=== PATIENT | male | born 2000 | race Caucasian/White ===

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

== ENCOUNTER 2019-04-17 09:45 | Emergency (ER) | payer OTHER ==
[~2019-04-17] VITALS: Ht 175.3 cm; Wt 90.9 kg
[2019-04-17 09:48] VITALS: Ht 175.3 cm; Wt 90.9 kg
[2019-04-17 10:55] VITALS: BP 121/64
== END 2019-04-17 10:56 | disposition home or self-care (01) ==
LOC: D.ER 09:45
DX: S61.412A Laceration without foreign body of left hand, initial encounter (principal); W27.0XXA Contact with workbench tool, initial encounter; Y93.9 Activity, unspecified; Y92.9 Unspecified place or not applicable

== ENCOUNTER → 2019-07-29 09:28 | Outpatient (CLI) | payer OTHER ==
[2019-04-17 09:48] VITALS: BMI 29.6
[~2019-07-29 09:28] MED LIST: HYDROCODON-ACE1 EAC7 PO; TORADOL10 MG PO
[2019-07-31 12:42] VITALS: BMI 30.9
== END | disposition home or self-care (01) ==
LOC: D.MRI 09:28
PROVIDERS: ATTEND Clinical Nurse Specialist Family Health
DX: M25.862 Other specified joint disorders, left knee (principal)

== ENCOUNTER 2019-07-31 11:35 | Day surgery (SDC) | payer OTHER ==
[~2019-07-31] VITALS: Ht 177.8 cm; Wt 97.5 kg
[2019-07-31 12:42] VITALS: BP 123/71; Ht 177.8 cm; Wt 97.5 kg
[2019-07-31] MEDS ORDERED: HYDROCODON-ACE1 EAC7 PO (14:30)
[2019-07-31] MEDS ORDERED: TORADOL10 MG PO (14:30)
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
--- NOTE | 2019-07-31 16:18 | NUR ---
1600-PT DRESSED.REVIEWED POST OPERATIVE INSTRUCTIONS AND FOLLOW UP APPOINTMENT. VERBALIZED UNDERSTANDING. ESCORTED OUT VIA W/C WITH MOTHER AWAITING TO DRIVE HOME
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
== END 2019-07-31 16:00 | disposition home or self-care (01) ==
LOC: D.OPS 11:35
PROVIDERS: ATTEND Orthopaedic Surgery
DX: R22.42 Localized swelling, mass and lump, left lower limb (principal); M25.862 Other specified joint disorders, left knee; M25.562 Pain in left knee

== ENCOUNTER 2019-11-09 08:34 | Day surgery (SDC) | payer OTHER ==
[~2019-11-09] VITALS: Ht 177.8 cm; Wt 97.5 kg
[2019-11-09 09:43] VITALS: BP 124/48; Ht 177.8 cm; Wt 97.5 kg
[2019-11-09] MEDS ORDERED: PERCOCET 10-321 EAC1 PO (14:48)
--- NOTE | 2019-11-09 16:07 | NUR ---
1600 ASSISSTED UP TO BR VOIDS LG AMT. AMBULATES WELL WITH WALKER.
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
== END 2019-11-09 16:50 | disposition home or self-care (01) ==
LOC: D.OPS 08:34 → D.PAN 10:45 → D.OPS 11:30
PROVIDERS: ATTEND Orthopaedic Surgery
DX: S83.512A Sprain of anterior cruciate ligament of left knee, initial encounter (principal); S83.282A Other tear of lateral meniscus, current injury, left knee, initial encounter; X58.XXXA Exposure to other specified factors, initial encounter; M25.562 Pain in left knee

== ENCOUNTER 2020-07-03 21:00 | Emergency (ER) | payer SELFPAY ==
[2019-11-09 09:43] VITALS: Ht 177.8 cm; Wt 122.7 kg
[~2020-07-03] VITALS: Ht 177.8 cm; Wt 122.7 kg
[~2020-07-03 21:00] MED LIST changes: +PERCOCET 10-321 EAC1 PO
[2020-07-03] MEDS ORDERED: DICLOFENAC SODI50 MG PO (23:17)
[2020-07-03] MEDS ORDERED: ZANAFLEX4 MG PO (23:17)
[2020-07-03 23:37] VITALS: BP 137/84
== END 2020-07-03 23:37 | disposition home or self-care (01) ==
LOC: D.ER 21:00
DX: S40.012A Contusion of left shoulder, initial encounter (principal); S43.005A Unspecified dislocation of left shoulder joint, initial encounter; V29.9XXA Motorcycle rider (driver) (passenger) injured in unspecified traffic accident, initial encounter; Y93.9 Activity, unspecified; Y92.9 Unspecified place or not applicable